=== PATIENT | female | born 1945 | race African-American/Black ===

== ENCOUNTER 2017-12-20 06:47 | Inpatient (IN) ==
[2017-12-20] MEDS ORDERED: methylPREDNISolone SOD SUC 125 MG/2 ML VIAL IV STA (07:21)
[2017-12-20 07:49] LABS: Basophils % 0.4 % (0.0-0.8); Eosinophils # 0.1 10*3/uL (0.0-0.87); Eosinophils % 2.2 % (0.00-10.9); Hematocrit 41.9 VOL% (35.7-47.0); Hemoglobin 13.4 GM/DL (12.0-16.0); Immature Granulocytes % 0.2 %; Immature Granulocytes Absolute 0.01 #; Lymphocytes # 0.8 10*3/uL (1.4-4.0); Lymphocytes % 16.8 % (21.3-54.2); Mean Corpuscular Hemoglobin 28 PG (27-34); Mean Corpuscular Volume 87.5 FL (87-102); Mean Platelet Volume 11.6 FL (9.6-12.0); Monocytes # 0.4 10*3/uL (0.11-0.8); Monocytes % 8.6 % (1.7-12.7); Neutrophils # 3.2 10*3/uL (1.4-7.4); Neutrophils % 71.8 % (38.7-73.9); Platelet Count 175 T/CUMM (130-400); Red Blood Count 4.79 MC/CUMM (3.8-5.5); Red Cell Distribution Width 14.6 % (9.3-17.3); White Blood Count 4.5 T/CUMM (4-12)
[2017-12-20] MEDS: ALBUTEROL 2.5 MG/3 ML NEB RESP TX SCH (07:50)
[2017-12-20 07:57] LABS: PT Patient Result 10.7 SECS; Partial Thromboplastin Time 31.5 SECS (0-40)
[2017-12-20 08:19] LABS: Alanine Aminotransferase 20 U/L (13-56); Albumin 3.3 G/DL (3.4-5.0); Alkaline Phosphatase 136 U/L (45-117); Aspartate Amino Transferase 25 U/L (0-37); Blood Urea Nitrogen 16 MG/DL (7-18); Calcium 8.4 MG/DL (8.5-10.1); Glucose 174 MG/DL (74-106); Potassium 3.4 MMOL/L (3.5-5.1); Sodium 143 MMOL/L (136-145); Total Protein 7.3 G/DL (6.4-8.3); Troponin I Only < 0.015 NG/ML (0.00-0.045)
[2017-12-20] MEDS ORDERED: methylPREDNISolone SOD SUC 125 MG/2 ML VIAL ONE (08:20)
[2017-12-20] MEDS ORDERED: ALBUTEROL 2.5 MG/3 ML NEB RESP TX STA (08:59)
[2017-12-20] MEDS ORDERED: hydroCHLOROthiazide 25 MG TABLET PO SCH (10:30)
[2017-12-20] MEDS ORDERED: POTASSIUM CHLORIDE 10 MEQ TABLET PO SCH (10:30)
[2017-12-20] MEDS ORDERED: ONDANSETRON 4 MG/2 ML VIAL IV PRN (10:32)
[2017-12-20] MEDS ORDERED: GLUCAGON 1 MG VIAL IM PRN (10:32)
[2017-12-20] MEDS ORDERED: DEXTROSE 50% 25 GM/50 ML VIAL IV PRN (10:32)
[2017-12-20] MEDS ORDERED: DOCUSATE SODIUM 100 MG CAPSULE PO PRN (10:32)
[2017-12-20] MEDS ORDERED: MORPHINE 2 MG/1 ML SYRINGE IV PRN (10:32)
[2017-12-20] MEDS ORDERED: diphenhydrAMINE CAP 25 MG CAPSULE PO PRN (10:32)
[2017-12-20] MEDS ORDERED: guaiFENesin/DM ER 600-30 MG TABLET PO PRN (10:32)
[2017-12-20] MEDS ORDERED: ALBUTEROL 2.5 MG/3 ML NEB RESP TX PRN (10:35)
[2017-12-20] MEDS ORDERED: MAGNESIUM SULF RIDER 2 GM in PREMIX 1 EACH IV ONE (10:50)
[2017-12-20] MEDS ORDERED: POTASSIUM CHLORIDE 20 MEQ TABLET PO ONE ×2 (10:52→11:21)
[2017-12-20] MEDS ORDERED: ENOXAPARIN 40 MG/0.4 ML SYRINGE SUBCUT SCH ×2 (11:00→18:00)
[2017-12-20] MEDS ORDERED: cloNIDine 0.1 MG TABLET ONE (11:21)
[2017-12-20] MEDS ORDERED: CLOPIDOGREL 75 MG TABLET ONE (11:21)
[2017-12-20] MEDS ORDERED: ENOXAPARIN 40 MG/0.4 ML SYRINGE ONE (11:21)
[2017-12-20] MEDS ORDERED: PANTOPRAZOLE 40 MG TABLET PO ONE (11:21)
[2017-12-20] MEDS: PANTOPRAZOLE 40 MG TABLET PO SCH (11:27)
[2017-12-20] MEDS: CLOPIDOGREL 75 MG TABLET PO SCH (11:27)
[2017-12-20] MEDS ORDERED: LEVOFLOXACIN INJ 150 ML IV ONE (11:40)
[2017-12-20] MEDS: LEVOFLOXACIN INJ 750 MG in PREMIX 1 EACH IV SCH (11:44)
[2017-12-20] MEDS ORDERED: PIPERACILLIN/TAZOBACTAM 3,375 MG in SODIUM CHLORIDE 0.9% 100 ML IV SCH (12:00)
[2017-12-20] MEDS ORDERED: INSULIN NPH/REGULAR 70/30 100 UNIT/ML SUBCUT ONE (12:15)
[2017-12-20] MEDS: INSULIN NPH/REGULAR 70/30 100 UNIT/ML SUBCUT SCH ×2 (12:16→17:26)
[2017-12-20] MEDS: BUDESONIDE/FORMOTEROL 160-4.5 INHALER 6 GM INH SCH ×2 (12:17→20:16)
[2017-12-20] MEDS: LOSARTAN 50 MG TABLET PO SCH (12:58)
[2017-12-20] MEDS ORDERED: ENOXAPARIN 60 MG/0.6 ML SYRINGE SUBCUT STA (12:59)
[2017-12-20] MEDS: DILTIAZEM 30 MG TABLET PO SCH ×3 (13:13→18:10)
[2017-12-20] MEDS ORDERED: ENOXAPARIN 100 MG/ML SYRINGE SUBCUT ONE (13:26)
[2017-12-20] MEDS: ALBUTEROL/IPRATROPIUM 3 ML NEB RESP TX SCH ×3 (13:30→23:53)
[2017-12-20] MEDS ORDERED: MAGNESIUM SULF RIDER 50 ML IV ONE (13:32)
[2017-12-20] MEDS: FUROSEMIDE 40 MG/4 ML VIAL IV SCH (15:33)
[2017-12-20] MEDS: methylPREDNISolone SOD SUC 40 MG/1 ML VIAL IV SCH ×2 (15:33→23:33)
[2017-12-20 16:19] LABS: Apearance,Urine CLEAR (Clear); Bacteria,Urine Occasional /HPF (Few); Bilirubin,Urine Negative (Negative); Blood, Urine Negative (Negative); Glucose,Urine (UA) >=500 mg/dL (Negative); Ketones,Urine 20 mg/dL (Negative); Mucus,Urine Occasional /LPF (Occasional); Nitrite,Urine Negative (Negative); Protein,Urine 100 MG/DL; RBC,Urine <1 /HPF (0-4); Urine Color Yellow (Yellow); Urine Specific Gravity 1.015 (1.001-1.035); Urine Urobilinogen < 2.0 EU/DL (0.2-1.0)
[2017-12-20] MEDS ORDERED: INSULIN LISPRO 100 UNIT/ML SUBCUT SCH (17:00)
[2017-12-20] MEDS ORDERED: IBUPROFEN 800 MG TABLET PO ONE (19:51)
[2017-12-20] MEDS: MELATONIN 3 MG TABLET PO SCH (20:14)
[2017-12-20] MEDS: PRAVASTATIN 20 MG TABLET PO SCH (20:15)
[2017-12-20] MEDS: ENOXAPARIN 100 MG/ML SYRINGE SUBCUT SCH (20:16)
[2017-12-20] MEDS: INSULIN REGULAR 100 UNIT/ML SUBCUT SCH (23:33)
[2017-12-21] MEDS: DILTIAZEM 30 MG TABLET PO SCH ×4 (00:15→18:00)
[2017-12-21 06:46] LABS: Basophils % 0.1 % (0.0-0.8); Hematocrit 37.1 VOL% (35.7-47.0); Hemoglobin 12.7 GM/DL (12.0-16.0); Immature Granulocytes % 0.4 %; Immature Granulocytes Absolute 0.03 #; Lymphocytes # 0.5 10*3/uL (1.4-4.0); Lymphocytes % 5.9 % (21.3-54.2); Mean Corpuscular HGB Conc 34.2 GM/DL (32-36); Mean Corpuscular Hemoglobin 29 PG (27-34); Mean Corpuscular Volume 83.7 FL (87-102); Mean Platelet Volume 12.2 FL (9.6-12.0); Monocytes # 0.3 10*3/uL (0.11-0.8); Monocytes % 3.2 % (1.7-12.7); Neutrophils % 90.4 % (38.7-73.9); Platelet Count 187 T/CUMM (130-400); Red Blood Count 4.43 MC/CUMM (3.8-5.5); Red Cell Distribution Width 14.9 % (9.3-17.3); White Blood Count 7.7 T/CUMM (4-12)
[2017-12-21] MEDS: ALBUTEROL/IPRATROPIUM 3 ML NEB RESP TX SCH ×3 (07:10→19:24)
[2017-12-21 07:15] LABS: Calcium 8.1 MG/DL (8.5-10.1); Osmolality,Calculated 289.8 MOS/KG (273-304); Potassium 3.2 MMOL/L (3.5-5.1); Risk Ratio 1.89; VLDL CHOLESTEROL 9.2 MG/DL
[2017-12-21] MEDS: INSULIN REGULAR 100 UNIT/ML SUBCUT SCH ×4 (09:15→20:55)
[2017-12-21] MEDS: ENOXAPARIN 100 MG/ML SYRINGE SUBCUT SCH (09:15)
[2017-12-21] MEDS: INSULIN NPH/REGULAR 70/30 100 UNIT/ML SUBCUT SCH ×2 (09:16→17:32)
[2017-12-21] MEDS: FUROSEMIDE 40 MG/4 ML VIAL IV SCH (09:16)
[2017-12-21] MEDS: CLOPIDOGREL 75 MG TABLET PO SCH (09:17)
[2017-12-21] MEDS: BUDESONIDE/FORMOTEROL 160-4.5 INHALER 6 GM INH SCH ×2 (09:17→21:01)
[2017-12-21] MEDS: methylPREDNISolone SOD SUC 40 MG/1 ML VIAL IV SCH (09:17)
[2017-12-21] MEDS: PANTOPRAZOLE 40 MG TABLET PO SCH (09:17)
[2017-12-21] MEDS: POTASSIUM CHLORIDE 20 MEQ TABLET PO SCH (09:17)
[2017-12-21] MEDS: LOSARTAN 50 MG TABLET PO SCH (09:17)
[2017-12-21] MEDS ORDERED: POTASSIUM CHLORIDE 20 MEQ TABLET PO ONE (11:35)
[2017-12-21] MEDS ORDERED: IBUPROFEN 400 MG TABLET PO PRN (11:36)
[2017-12-21] MEDS: LEVOFLOXACIN INJ 750 MG in PREMIX 1 EACH IV SCH (12:27)
[2017-12-21] MEDS: CARVEDILOL 12.5 MG TABLET PO SCH ×2 (12:30→20:54)
[2017-12-21] MEDS ORDERED: ZALEPLON 5 MG CAPSULE PO PRN ×2 (12:55→14:20)
[2017-12-21] MEDS ORDERED: LORazepam 0.5 MG TABLET PO ONE (14:52)
[2017-12-21] MEDS ORDERED: METOPROLOL TARTRATE 5 MG/5 ML VIAL IV ONE (20:33)
[2017-12-21] MEDS: PRAVASTATIN 20 MG TABLET PO SCH (20:54)
[2017-12-21] MEDS: MELATONIN 3 MG TABLET PO SCH (20:54)
[2017-12-21] MEDS: APIXABAN 5 MG TABLET PO SCH (21:32)
[2017-12-22] MEDS: LEVALBUTEROL 1.25 MG/3 ML NEB RESP TX SCH ×5 (00:09→20:13)
[2017-12-22] MEDS: DILTIAZEM 30 MG TABLET PO SCH ×4 (01:17→18:13)
[2017-12-22 05:44] LABS: Basophils % 0.1 % (0.0-0.8); Hematocrit 37.6 VOL% (35.7-47.0); Hemoglobin 12.4 GM/DL (12.0-16.0); Immature Granulocytes % 0.5 %; Immature Granulocytes Absolute 0.06 #; Mean Corpuscular Hemoglobin 28 PG (27-34); Mean Corpuscular Volume 85.1 FL (87-102); Monocytes # 0.5 10*3/uL (0.11-0.8); Monocytes % 3.7 % (1.7-12.7); Neutrophils % 87.7 % (38.7-73.9); Platelet Count 199 T/CUMM (130-400); Red Blood Count 4.42 MC/CUMM (3.8-5.5); White Blood Count 12.6 T/CUMM (4-12)
[2017-12-22 06:46] LABS: Calcium 7.9 MG/DL (8.5-10.1); Osmolality,Calculated 279.8 MOS/KG (273-304); Potassium 4.2 MMOL/L (3.5-5.1)
[2017-12-22 06:54] LABS: Calcium 7.9 MG/DL (8.5-10.1); Osmolality,Calculated 279.8 MOS/KG (273-304); Potassium 4.2 MMOL/L (3.5-5.1)
[2017-12-22] MEDS: INSULIN REGULAR 100 UNIT/ML SUBCUT SCH ×4 (09:03→21:40)
[2017-12-22] MEDS: LOSARTAN 50 MG TABLET PO SCH (09:43)
[2017-12-22] MEDS: APIXABAN 5 MG TABLET PO SCH ×2 (09:44→21:39)
[2017-12-22] MEDS: CLOPIDOGREL 75 MG TABLET PO SCH (09:44)
[2017-12-22] MEDS: CARVEDILOL 12.5 MG TABLET PO SCH ×2 (09:44→21:39)
[2017-12-22] MEDS: FUROSEMIDE 40 MG/4 ML VIAL IV SCH (09:44)
[2017-12-22] MEDS: PANTOPRAZOLE 40 MG TABLET PO SCH (09:44)
[2017-12-22] MEDS: predniSONE 20 MG TABLET PO SCH (09:44)
[2017-12-22] MEDS: POTASSIUM CHLORIDE 20 MEQ TABLET PO SCH (09:44)
[2017-12-22] MEDS: BUDESONIDE/FORMOTEROL 160-4.5 INHALER 6 GM INH SCH ×2 (09:45→21:42)
[2017-12-22] MEDS: INSULIN NPH/REGULAR 70/30 100 UNIT/ML SUBCUT SCH ×2 (09:45→17:15)
[2017-12-22] MEDS: LEVOFLOXACIN INJ 750 MG in PREMIX 1 EACH IV SCH (13:00)
[2017-12-22] MEDS: MELATONIN 3 MG TABLET PO SCH (21:39)
[2017-12-22] MEDS: PRAVASTATIN 20 MG TABLET PO SCH (21:39)
[2017-12-23] MEDS: LEVALBUTEROL 1.25 MG/3 ML NEB RESP TX SCH ×5 (01:39→19:07)
[2017-12-23] MEDS: DILTIAZEM 30 MG TABLET PO SCH ×4 (04:06→14:01)
[2017-12-23 07:55] LABS: Basophils % 0.1 % (0.0-0.8); Hematocrit 41.8 VOL% (35.7-47.0); Hemoglobin 13.6 GM/DL (12.0-16.0); Immature Granulocytes % 0.8 %; Immature Granulocytes Absolute 0.09 #; Lymphocytes # 2.3 10*3/uL (1.4-4.0); Lymphocytes % 19.5 % (21.3-54.2); Mean Corpuscular HGB Conc 32.5 GM/DL (32-36); Mean Corpuscular Hemoglobin 28 PG (27-34); Mean Corpuscular Volume 85.5 FL (87-102); Mean Platelet Volume 11.8 FL (9.6-12.0); Monocytes # 0.7 10*3/uL (0.11-0.8); Neutrophils # 8.7 10*3/uL (1.4-7.4); Neutrophils % 73.6 % (38.7-73.9); Platelet Count 215 T/CUMM (130-400); Red Blood Count 4.89 MC/CUMM (3.8-5.5); Red Cell Distribution Width 15.1 % (9.3-17.3); White Blood Count 11.8 T/CUMM (4-12)
[2017-12-23 08:49] LABS: Calcium 8.2 MG/DL (8.5-10.1); Osmolality,Calculated 282.3 MOS/KG (273-304); Potassium 3.9 MMOL/L (3.5-5.1)
[2017-12-23] MEDS: INSULIN REGULAR 100 UNIT/ML SUBCUT SCH ×4 (09:48→21:37)
[2017-12-23] MEDS: CARVEDILOL 12.5 MG TABLET PO SCH ×2 (09:50→20:07)
[2017-12-23] MEDS: LOSARTAN 50 MG TABLET PO SCH (09:50)
[2017-12-23] MEDS: CLOPIDOGREL 75 MG TABLET PO SCH (09:51)
[2017-12-23] MEDS: predniSONE 20 MG TABLET PO SCH (09:51)
[2017-12-23] MEDS: APIXABAN 5 MG TABLET PO SCH ×2 (09:51→20:07)
[2017-12-23] MEDS: PANTOPRAZOLE 40 MG TABLET PO SCH (09:52)
[2017-12-23] MEDS: BUDESONIDE/FORMOTEROL 160-4.5 INHALER 6 GM INH SCH ×2 (09:52→20:09)
[2017-12-23] MEDS: FUROSEMIDE 40 MG/4 ML VIAL IV SCH (10:01)
[2017-12-23] MEDS: INSULIN NPH/REGULAR 70/30 100 UNIT/ML SUBCUT SCH ×2 (10:05→16:07)
[2017-12-23] MEDS: LEVOFLOXACIN INJ 750 MG in PREMIX 1 EACH IV SCH (11:09)
[2017-12-23] MEDS ORDERED: hydrALAZINE 20 MG/1 ML VIAL IV PRN (11:42)
[2017-12-23] MEDS ORDERED: SODIUM CHLORIDE 0.65% NASAL SPRAY 45 ML BOTTLE BOTH NARES PRN (14:06)
[2017-12-23] MEDS ORDERED: LORazepam 0.5 MG TABLET PO PRN (14:13)
[2017-12-23] MEDS: hydrALAZINE 25 MG TABLET PO SCH ×2 (14:42→20:07)
[2017-12-23] MEDS: amLODIPine 5 MG TABLET PO SCH (18:11)
[2017-12-23] MEDS: PRAVASTATIN 20 MG TABLET PO SCH (20:07)
[2017-12-23] MEDS: MELATONIN 3 MG TABLET PO SCH (20:07)
[2017-12-24] MEDS: LEVALBUTEROL 1.25 MG/3 ML NEB RESP TX SCH ×3 (00:29→12:45)
[2017-12-24 06:23] LABS: Basophils % 0.1 % (0.0-0.8); Hematocrit 42.3 VOL% (35.7-47.0); Hemoglobin 13.8 GM/DL (12.0-16.0); Lymphocytes % 18.8 % (21.3-54.2); Mean Corpuscular HGB Conc 32.6 GM/DL (32-36); Mean Corpuscular Hemoglobin 28 PG (27-34); Mean Corpuscular Volume 85.1 FL (87-102); Mean Platelet Volume 12.3 FL (9.6-12.0); Neutrophils % 74.1 % (38.7-73.9); Platelet Count 211 T/CUMM (130-400); Red Blood Count 4.97 MC/CUMM (3.8-5.5); Red Cell Distribution Width 14.7 % (9.3-17.3); White Blood Count 10.6 T/CUMM (4-12)
[2017-12-24 06:24] LABS: Immature Granulocytes Absolute 0.11 #; Monocytes # 0.6 10*3/uL (0.11-0.8); Neutrophils # 7.8 10*3/uL (1.4-7.4)
[2017-12-24 06:55] LABS: Calcium 8.4 MG/DL (8.5-10.1); Osmolality,Calculated 283.4 MOS/KG (273-304); Potassium 3.6 MMOL/L (3.5-5.1)
[2017-12-24 07:39] LABS: Hypochromasia Slight
[2017-12-24] MEDS: INSULIN REGULAR 100 UNIT/ML SUBCUT SCH ×2 (07:40→12:33)
[2017-12-24] MEDS: CLOPIDOGREL 75 MG TABLET PO SCH (08:17)
[2017-12-24] MEDS: predniSONE 20 MG TABLET PO SCH (08:17)
[2017-12-24] MEDS: APIXABAN 5 MG TABLET PO SCH (08:17)
[2017-12-24] MEDS: LOSARTAN 50 MG TABLET PO SCH (08:17)
[2017-12-24] MEDS: hydrALAZINE 25 MG TABLET PO SCH ×3 (08:17→14:08)
[2017-12-24] MEDS: PANTOPRAZOLE 40 MG TABLET PO SCH (08:18)
[2017-12-24] MEDS: amLODIPine 5 MG TABLET PO SCH (08:18)
[2017-12-24] MEDS: INSULIN NPH/REGULAR 70/30 100 UNIT/ML SUBCUT SCH (08:18)
[2017-12-24] MEDS: CARVEDILOL 12.5 MG TABLET PO SCH (08:18)
[2017-12-24] MEDS: FUROSEMIDE 40 MG/4 ML VIAL IV SCH (08:18)
[2017-12-24] MEDS: BUDESONIDE/FORMOTEROL 160-4.5 INHALER 6 GM INH SCH (08:19)
[2017-12-24] MEDS: LEVOFLOXACIN INJ 750 MG in PREMIX 1 EACH IV SCH (12:33)
[2017-12-24] MEDS ORDERED: LEVOFLOXACIN 750 MG TABLET PO SCH (13:00)
[2017-12-24 13:14] VITALS: BP 154/92
[2017-12-25] MEDS ORDERED: FUROSEMIDE 40 MG TABLET PO SCH (09:00)
[2017-12-25] MEDS ORDERED: predniSONE 20 MG TABLET PO SCH (09:00)
== END 2017-12-24 15:44 | disposition home or self-care (01) | DRG 194 ==
LOC: N.ED 06:47 → SUATTDRO 09:32 → N.EDINP 09:32 → N.5E 15:12
PROVIDERS: ADMIT Internal Medicine; ATTEND Internal Medicine